=== PATIENT | female | born 1930 | race Caucasian/White ===

== ENCOUNTER 2017-09-18 09:11 | Inpatient (IN) ==
--- NOTE | 2017-09-18 09:47 | Emergency Department Note ---
ED Disposition Clinical Impression: HCAP (healthcare-associated pneumonia) Respiratory failure with hypoxia and hypercapnia Qualifiers: Chronicity: acute Qualified Code(s): J96.01 - Acute respiratory failure with hypoxia Disposition: Still a Patient Condition on Discharge: Critical - Critical Care Critical Care Time: Yes Attestation: On 09/18/17, the high probability of a clinically significant, sudden or life threatening deterioration of the following system(s) required my full and direct attention, intervention and personal management. The time I documented below is in addition to time spent performing reported procedures but includes the following listed in this critical care notation. Total Critical Care Time: 45 Vital system(s) involved:: Respiratory Failure My critical care processes included: Assessment & monitoring of V/S, Initial and Re-exams, Data Review/Interpretation, Coordinating Care, Medication Orders and management, Documentation Medical Decision Making - Rip Inquiry Pt receiving controlled substance: No Vital Signs: 09/18/17 09:12 09/18/17 09:45 09/18/17 11:00 Temperature 99 F Temperature Source Temporal Artery Scan Pulse Rate 77 Pulse Rate [Left Radial] 66 70 Respiratory Rate 28 H Blood Pressure [Right Arm] 135/68 125/82 Blood Pressure Mean [Right Arm] 90 96 Blood Pressure Source [Right Arm] Automatic Cuff Blood Pressure Position [Right Arm] Sitting 02 Sat by Pulse Oximetry 95 87 L Oxygen Delivery Method Nasal Cannula Nasal Cannula Oxygen Flow Rate (LPM) 3 09/18/17 12:11 Temperature Temperature Source Pulse Rate Pulse Rate [Left Radial] 80 Respiratory Rate Blood Pressure [Right Arm] 153/70 Blood Pressure Mean [Right Arm] 97 Blood Pressure Source [Right Arm] Blood Pressure Position [Right Arm] 02 Sat by Pulse Oximetry 84 L Oxygen Delivery Method Oxygen Flow Rate (LPM) - Lab Data Lab Results 09/18/17 10:00: WBC 14.7 H, RBC 3.91 L, Hgb 12.5, Hct 39.8, MCV 101.8 H, MCH 31.8 H, MCHC 31.3 L, RDW 13.2, Plt Count 177, MPV 10.3, Neut % (Auto) 86.7 H, Lymph % (Auto) 4.1 L, [place] % (Auto) 8.9, Eos % (Auto) 0.1, Baso % (Auto) 0.2, Neut # (Auto) 12.7 H, Lymph # (Auto) 0.6 L, [place] # (Auto) 1.3 H, Eos # (Auto) 0.0, Baso # (Auto) 0.0, Total Counted 100, Neutrophils % (Manual) 90 H, Lymphocytes % (Manual) 4 L, Atypical Lymphs % 1.0, Monocytes % (Manual) 5, Platelet Estimate Normal 09/18/17 10:00: Sodium 138, Potassium 4.8, Chloride 101, Carbon Dioxide 37 H, Anion Gap 4.8 L, BUN 24 H, Creatinine 1.11 H, Estimated Creat Clear 33, Estimated GFR 46 L, Est GFR ( Amer) 56 L, Glucose 166 H, Calcium 8.7, Total Bilirubin 0.3, AST 23, ALT 23, Alkaline Phosphatase 82, Total Protein 7.4 , Albumin 3.2 L, Globulin 4.2 H, Albumin/Globulin Ratio 0.8 L 09/18/17 10:00: Lactic Acid 1.0 09/18/17 11:31: Specimen Source r radial, O2 % 3, ABG pH 7.26 L, ABG pCO2 68.9 H , ABG pO2 36.8 L, ABG HCO3 30.2 H, ABG Total CO2 32.3 H, ABG O2 Saturation 69 L* , ABG Base Excess 3.1 H, Raudel Test acceptable Result diagrams: 09/18/17 10:00 09/18/17 10:00 Orders (Tests/Meds): ED MEDICATIONS Generic Name Dose Route Start Last Admin Trade Name Freq PRN Reason Stop Dose Admin Levofloxacin/Dextrose 750 mg in 150 mls @ 100 mls/hr 09/18/17 12:00 Levofloxacin 750mg/150ml Premix IV 10/02/17 11:59 Q24H [facility] Protocol Cefepime HCl 2 gm/ Sodium 100 mls @ 200 mls/hr 09/18/17 12:00 09/18/17 12:04 Chloride IV 10/02/17 11:59 200 mls/hr Q8H [facility] Administration Protocol Miscellaneous 1 each 09/18/17 12:00 Vancomycin Consult Request * 10/18/17 11:59 CONSULT [facility]ARMACY [facility] Discontinued Medications Generic Name Dose Route Start Last Admin Trade Name Freq PRN Reason Stop Dose Admin Albuterol/Ipratropium 3 ml 09/18/17 10:06 09/18/17 10:07 Duoneb 3ml Neb 09/18/17 10:07 3 ml ONCE ONE Administration Methylprednisolone Sodium Succinate 125 mg 09/18/17 11:52 09/18/17 12:04 Solu-Medrol 125mg/2ml Vial IV 09/18/17 11:53 125 mg ONCE ONE Administration Sodium Chloride 3 ml 09/18/17 09:49 Sodium Choride 3ml Neb Soln 09/18/17 09:50 ONCE ONE ORDERS Category Date Time Status Upper Respiratory Panel, PCR Stat Lab 09/18/17 12:09 Received Blood Culture Stat Micro 09/18/17 10:15 Received Sputum Culture & Gram Stain Stat Micro 09/18/17 09:45 Results - Radiology Data #1 Image(s): Chest Image Reviewed: Yes I discussed the image results w/the radiologist Prominent right hilum, chronic. Rotation. Left lower lobe pneumonia. Medical Decision Narrative: The patient had declining oxygen saturation the emergency department. Placed on nonrebreather mask for a pulse oximetry in the 60s. Pulse oximetry came up to 90. Arterial blood gases also show hypercapnia. Started on BiPAP. I have discussed the case with Dr. Navarro for Dr. Beltran who agrees to admit the patient to the hospital. We discussed the patient's clinical information, including history, exam, laboratory and radiology results and ED course. Per hospital procedure, I will write temporary bridge inpatient orders on the patient. Specific orders requested by the admitting physician: Continue BiPAP, antibiotics, nebulizer treatments, steroids General Adult HPI - General Chief complaint: Shortness of Breath/Dyspnea Stated complaint: altered mental status Time Seen by Provider: 09/18/17 09:47 Mode of Arrival: EMS Limitations: Altered Mental Status Description of Symptoms (Recalled from ER Triage Doc. by RN): AMS. Increased pulmonary congestion over night. Pt is DNR. - History of Present Illness HPI narrative: History obtained from nursing staff and from daughter. Daughter states that she got a call [facility] the [facility] last night stating that the patient had a fever. They said that yesterday she was up walking around and seemed fine and then last night developed a fever, has been sleeping since then, and today has respiratory difficulty. Daughter states she has a history of pneumonia when she was younger. Scarring in her lungs. Says she carries a diagnosis of COPD on her chart, but daughter was unaware that she had been diagnosed with that. No history of heart was. She does have severe dementia and is DNR. - Related Data Allergies Allergy/AdvReac Type Severity Reaction Status Date / Time INGREDIENT: NO KNOWN - NO Allergy Unknown Uncoded 05/21/17 15:34 KNOWN DRUG ALLERGY No Known Drug Allergies - Allergy Unknown NA Uncoded 05/21/17 15:34 Nkda [facility] History I have reviewed the patient's past medical history: Yes - Social History Alcohol Intake: never - Psychiatric History Expresses thoughts of harming self/others: None Suicide Plan Description: No Plan ROS Obtained: Yes unobtainable due to mental status Physical Exam - General General appearance: other Comment: Lays with eyes closed. Opens eyes and looks at me when I speak to her, but does not answer questions or follow commands. Tachypneic. Audible respiratory congestion. - Head Head exam: atraumatic, normocephalic, normal inspection - Eye Eye exam: Present: normal appearance, PERRL, EOMI - ENT ENT exam: Present: normal exam - Neck Neck exam: Present: normal inspection, full ROM, trachea midline. Absent: meningismus, lymphadenopathy - Chest Chest inspection: Present: normal inspection, symmetric chest wall rise. Absent : tenderness - Respiratory Respiratory exam: Present: respiratory distress, other (Tachypnea, audible rhonchi) - Cardiovascular Cardiovascular exam: Present: regular rate, normal rhythm. Absent: JVD - Abdominal Exam Abdominal exam: Present: soft, normal bowel sounds. Absent: distention, tenderness, guarding - Extremities Exam Extremities exam: Present: normal inspection, normal capillary refill - Neurological Exam Neurological exam: Present: other (Opens eyes to stimulation) - Skin Skin exam: Present: warm, dry, intact, normal color
[2017-09-18 10:16] LABS: Basophils % 0.2 % (0.1-2.0); Eosinophils % 0.1 % (0.1-12.0); Hematocrit 39.8 % (37.0-47.0); Hemoglobin 12.5 g/dL (12.2-16.2); Lymphocytes # 0.6 K/mm3 (0.7-4.5); Lymphocytes % 4.1 K/mm3 (10-50); Mean Corpuscular HGB Conc 31.3 g/dL (31.8-35.4); Mean Corpuscular Hemoglobin 31.8 pg (27.0-31.2); Mean Corpuscular Volume 101.8 fl (81-99); Mean Platelet Volume 10.3 fl (7.4-10.4); Monocytes # 1.3 K/mm3 (0.1-1.0); Monocytes % 8.9 % (1.7-9.3); Neutrophils # 12.7 K/mm3 (1.8-7.8); Neutrophils % 86.7 % (37.0-80.0); Platelet Count 177 K/mm3 (142-424); Red Blood Count 3.91 M/mm3 (4.20-5.40); Red Cell Distribution Width 13.2 % (11.5-17.5); White Blood Count 14.7 K/mm3 (4.8-10.8)
[2017-09-18 10:30] LABS: Albumin Level 3.2 gm/dL (3.4-5.0); Albumin/Globulin Ratio 0.8 (1.1-1.8); Anion Gap 4.8 mEq/L (5-15); Bilirubin,Total 0.3 mg/dL (0.2-1.0); Calcium 8.7 mg/dL (8.5-10.1); Globulin 4.2 gm/dl (1.3-3.2); Potassium 4.8 mmoL/L (3.5-5.1); Total Protein,Serum 7.4 gm/dL (6.4-8.2)
[2017-09-18 10:53] LABS: Lymphocytes % 4 % (10-50); Monocytes % 5 % (2-9); Neutrophils % 90 % (42-76); Total Cells Counted 100
[2017-09-18 11:42] LABS: ABG Base Excess 3.1 mmol/L (-2.4-2.3); ABG HCO3 30.2 mmhg (22.0-26.0); ABG Oxygen Saturation 69 % (90-100); ABG PH 7.26 mmol/L (7.35-7.45); ABG TCO2 32.3 mmhg (23-27)
[2017-09-18 11:44] LABS: Allen's Test acceptable; Oxygen 3 %
[2017-09-18 11:45] LABS: ABG PCO2 68.9 mmhg (35.0-45.0); ABG PO2 36.8 mmhg (80-100)
[2017-09-18 12:14] LABS: Coronavirus 229E Not Detected (NotDetected); Coronavirus NL63 Not Detected (NotDetected); Coronavirus OC43 Not Detected (NotDetected); Coronovirus HKU1,PCR Not Detected (NotDetected)
[2017-09-18 16:25] LABS: ABG Base Excess 4.5 mmol/L (-2.4-2.3); ABG HCO3 31.8 mmhg (22.0-26.0); ABG Oxygen Saturation 99 % (90-100); ABG PH 7.24 mmol/L (7.35-7.45); ABG PO2 308.3 mmhg (80-100); ABG TCO2 34.1 mmhg (23-27)
[2017-09-18 16:27] LABS: Oxygen 100 %
[2017-09-18 16:28] LABS: Tidal Volume 18/6
[2017-09-18 16:29] LABS: ABG PCO2 75.3 mmhg (35.0-45.0)
--- NOTE | 2017-09-18 17:30 | History & Physical Report ---
*Admission Date: 09/18/17 *Chief complaint: Mental status change/lethargy *History of present illness: 87-year-old white female, resident of local longterm who was brought to the emergency department with hypoxia, significant mental status change and sluggishness. Found to have evidence of healthcare acquired pneumonia with lung infiltrate on chest x-ray, significant hypoxia, hypercapnia and evidence of respiratory failure. Admitted to hospital for BiPAP therapy, enhanced antibiotics and supportive care. Of note she maintains a DNR status which I confirmed with all 3 of her children who are in attendance today at the hospital. [facility] History I have reviewed the patient's past medical history: Yes Medical History: Reports:: Diabetes Mellitus Type 2, Hypertension Other Surgeries: Yes: Hysterectomy-Total - *Social History Educational Level: Completed Grade School Smoking Status: Never smoker Alcohol Intake: never Occupational Status: retired Housing: longterm - Psychiatric History Expresses thoughts of harming self/others: None Suicide Plan Description: No Plan *Family Hx:: Tuberculosis Review of Systems - Review of Systems Review of systems:: unable to obtain Meds Allergies Allergy/AdvReac Type Severity Reaction Status Date / Time No Known Drug Allergies - Allergy Unknown NA Uncoded 09/18/17 13:28 Nkda Exam Vital signs and Labs for Last 24 Hours: Temp Pulse Resp BP Pulse Ox 99 F 80 24 153/70 84 L 09/18/17 13:29 09/18/17 13:29 09/18/17 13:29 09/18/17 13:29 09/18/17 12:11 Laboratory Results - last 24 hr 09/18/17 16:23: Specimen Source R brachial, O2 % 100, ABG pH 7.24 L*, ABG pCO2 75.3 H, ABG pO2 308.3 H, ABG HCO3 31.8 H, ABG Total CO2 34.1 H, ABG O2 Saturation 99, ABG Base Excess 4.5 H, Raudel Test N/a, Vent Rate 20, Tidal Volume 18/6 I & O for Last 24 hours: Intake & Output 09/16/17 09/17/17 09/18/17 09/19/17 11:59 11:59 11:59 11:59 Weight 107 lb 9 oz Narrative: Obtunded white female who appears her stated age, appears cachectic. On BiPAP. Lungs have rhonchi and BiPAP noises throughout, heart rate regular. Soft flow murmur. Abdomen is minimally tender to palpation with some grimacing and withdrawal behaviors on palpation. She has poor perfusion of her extremities, she has cool distal extremities with poor capillary refill. Assessment and Plan (1) HCAP (healthcare-associated pneumonia) Current visit: Yes Status: Acute Category: Medical Code(s): J18.9 - Pneumonia, unspecified organism (2) Respiratory failure with hypoxia and hypercapnia Current visit: Yes Status: Acute Qualifiers: Chronicity: acute Qualified Code(s): J96.01 - Acute respiratory failure with hypoxia; J96.02 - Acute respiratory failure with hypercapnia Category: Medical Code(s): J96.91 - Respiratory failure, unspecified with hypoxia; J96.92 - Respiratory failure, unspecified with hypercapnia Agree with admission and BiPAP therapy. I have reviewed her second ABG which shows no significant improvement. Patient is a high likelihood of organ dysfunction and significant mortality risk. Her family is aware of this, we have reiterated their desire for no aggressive resuscitative measures in the likelihood of cardiopulmonary arrest. Continue broad-spectrum antibiotics, supportive care and pulmonary toilet.
--- NOTE | 2017-09-19 07:39 | Pharmacy Consult Notes ---
[facility] Pharmacy VTE Monitoring - Patient Demographics Admission date: 09/18/17 Report Date: 09/19/17 Time: 07:39 Allergies/Adverse Reactions: Patient Allergies No Known Drug Allergies - Nkda Allergy (Unknown, Uncoded 09/18/17 13:28) NA Height: 1.55 m Weight: 48.79 kg Patient Problems: Current Active Problems HCAP (healthcare-associated pneumonia) (Acute) Respiratory failure with hypoxia and hypercapnia (Acute) - VTE Risk Labs: VTE Related Lab Results Hgb 12.5 g/dL (12.2-16.2) 09/18/17 10:00 Hct 39.8 % (37.0-47.0) 09/18/17 10:00 Plt Count 177 K/mm3 (142-424) 09/18/17 10:00 BUN 24 mg/dL (7-18) H 09/18/17 10:00 Creatinine 1.11 mg/dL (0.55-1.02) H 09/18/17 10:00 Estimated Creat Clear 33 mL/min (0-300) 09/18/17 10:00 Was VTE Risk Assessment Performed: Yes VTE Score: 3 VTE Risk Level: Low Risk - Prophylaxis VTE Prophylaxis Ordered?: Yes Types of VTE Prophylaxis: TEDS Knee High Location of Applied Device: Bilateral Lower Extremeties - VTE Diagnosis Confirmed Treatment or plan recommended: Continue Current Treatment
--- NOTE | 2017-09-19 07:53 | Progress Note ---
Internal Medicine - PN: Subj *Date: 09/19/17 *Time: 07:52 Interval history: Overnight patient has not made much improvement. Renal function is poor with varied negligible urine output. Labs do not look much better this morning. She responded fairly well to some Ativan last night but remained essentially obtunded. Exam Vital signs and Labs for Last 24 Hours: Temp Pulse Resp BP Pulse Ox 97.3 F L 77 20 166/64 97 09/19/17 07:36 09/19/17 07:36 09/19/17 07:36 09/19/17 07:36 09/19/17 07:36 Laboratory Results - last 24 hr 09/18/17 16:23: Specimen Source R brachial, O2 % 100, ABG pH 7.24 L*, ABG pCO2 75.3 H, ABG pO2 308.3 H, ABG HCO3 31.8 H, ABG Total CO2 34.1 H, ABG O2 Saturation 99, ABG Base Excess 4.5 H, Raudel Test N/a, Vent Rate 20, Tidal Volume 18/6 I & O for Last 24 hours: Intake & Output 09/16/17 09/17/17 09/18/17 09/19/17 11:59 11:59 11:59 11:59 Intake Total 1337 / 1337 Balance 1337 / 1337 Weight 107 lb 9 oz Narrative: Poor response to verbal and tactile stimuli. Lungs with rhonchi, poor perfusion , abdomen is softer. No extremity edema. Assessment and Plan (1) HCAP (healthcare-associated pneumonia) Current visit: Yes Status: Acute Category: Medical Code(s): J18.9 - Pneumonia, unspecified organism (2) Respiratory failure with hypoxia and hypercapnia Current visit: Yes Status: Acute Qualifiers: Chronicity: acute Qualified Code(s): J96.01 - Acute respiratory failure with hypoxia; J96.02 - Acute respiratory failure with hypercapnia Category: Medical Code(s): J96.91 - Respiratory failure, unspecified with hypoxia; J96.92 - Respiratory failure, unspecified with hypercapnia - Assessment and plan all Dx Assessment and Plan for all problems:: Poor response to antibiotics. Significant evidence of organ dysfunction. Palliative care, I anticipate a terminal outcome. Family aware.
--- NOTE | 2017-09-19 10:39 | Pharmacy Consult Notes ---
- Pharmacy Consult Date: 09/19/17 Time: 10:38 Referring provider: DR. RIVERO Reason for Consult:: VANCOMYCIN DOSING Allergies and ADEs:: Allergies Allergy/AdvReac Type Severity Reaction Status Date / Time No Known Drug Allergies - Allergy Unknown NA Uncoded 09/18/17 13:28 Nkda Home Medications:: Home Medications Medication Instructions Recorded Confirmed Type Glimepiride [Amaryl 2mg tablet] 2 mg PO DAILY 09/18/17 09/18/17 History Quetiapine Fumarate [Quetiapine 200 mg PO HS 09/18/17 09/19/17 History Fumarate] risperiDONE [Risperdal 1mg Tablet] 1 mg PO HS 09/18/17 09/18/17 History Height: 1.55 m Weight: 48.79 kg Laboratory Results:: Laboratory Results - last 24 hr 09/18/17 16:23: Specimen Source R brachial, O2 % 100, ABG pH 7.24 L*, ABG pCO2 75.3 H, ABG pO2 308.3 H, ABG HCO3 31.8 H, ABG Total CO2 34.1 H, ABG O2 Saturation 99, ABG Base Excess 4.5 H, Raudel Test N/a, Vent Rate 20, Tidal Volume 18/6 Medical History: Reports:: Diabetes Mellitus Type 2, Hypertension Assessment and Plan (1) HCAP (healthcare-associated pneumonia) Current visit: Yes Status: Acute Category: Medical Code(s): J18.9 - Pneumonia, unspecified organism (2) Respiratory failure with hypoxia and hypercapnia Current visit: Yes Status: Acute Qualifiers: Chronicity: acute Qualified Code(s): J96.01 - Acute respiratory failure with hypoxia; J96.02 - Acute respiratory failure with hypercapnia Category: Medical Code(s): J96.91 - Respiratory failure, unspecified with hypoxia; J96.92 - Respiratory failure, unspecified with hypercapnia - Assessment and plan all Dx Assessment and Plan for all problems:: BASED ON PATIENT FACTORS, RECOMMEND VANCOMYCIN 1 GM IV Q24H. WILL OBTAIN VANCOMYCIN TROUGH LEVEL PRIOR TO DOSE ON 09/20/17. PHARMACY WILL FOLLOW DAILY AND ADJUST APPROPRIATE.
--- NOTE | 2017-09-20 08:17 | Progress Note ---
Internal Medicine - PN: Subj *Date: 09/20/17 *Time: 08:15 Interval history: Patient remains obtunded, received Ativan a few minutes ago for agitation. She has had no meaningful communication per the nursing staff. Remains afflicted with very minimal urine output. Exam Vital signs and Labs for Last 24 Hours: Temp Pulse Resp BP Pulse Ox 97.1 F L 68 18 157/56 100 09/20/17 04:00 09/20/17 06:15 09/20/17 04:00 09/20/17 04:00 09/20/17 06:15 I & O for Last 24 hours: Intake & Output 09/17/17 09/18/17 09/19/17 09/20/17 11:59 11:59 11:59 11:59 Intake Total 1337 / 1337 1007 / 1007 Balance 1337 / 1337 1007 / 1007 Weight 107 lb 9 oz Narrative: Patient is obtunded, breathing with the aid of the BiPAP machine. Saturations 95% on BiPAP settings. Lungs have rhonchi bilaterally, heart rate regular. Abdomen is soft, perfusion is reasonable with slightly diminished cap refill 4 seconds but warm extremities. Assessment and Plan (1) HCAP (healthcare-associated pneumonia) Current visit: Yes Status: Acute Category: Medical Code(s): J18.9 - Pneumonia, unspecified organism (2) Respiratory failure with hypoxia and hypercapnia Current visit: Yes Status: Acute Qualifiers: Chronicity: acute Qualified Code(s): J96.01 - Acute respiratory failure with hypoxia; J96.02 - Acute respiratory failure with hypercapnia Category: Medical Code(s): J96.91 - Respiratory failure, unspecified with hypoxia; J96.92 - Respiratory failure, unspecified with hypercapnia (3) Citrobacter infection Current visit: Yes Status: Acute Category: Medical Code(s): A49.8 - Other bacterial infections of unspecified site - Assessment and plan all Dx Assessment and Plan for all problems:: Respiratory failure continues. Continue BiPAP -- ABG today to evaluate hypercapnia control. Overall prognosis is poor based on overlying age, underlying illnesses. Citrobacter infection noted, sensitive to antibiotics. Urine catheter to evaluate urine output. Labs tomorrow.
[2017-09-20 08:59] LABS: ABG HCO3 24.7 mmhg (22.0-26.0); ABG Oxygen Saturation 94 % (90-100); ABG PH 7.28 mmol/L (7.35-7.45); ABG PO2 72.8 mmhg (80-100); ABG TCO2 26.3 mmhg (23-27); Oxygen 55 %
[2017-09-20 09:00] LABS: Allen's Test Patient Unable; Tidal Volume BIPAP 18/6
[2017-09-20 09:01] LABS: ABG PCO2 53.3 mmhg (35.0-45.0)
[2017-09-20 12:21] LABS: Microscopic, Urine URINE MICROSCOPIC (MICROSCOPIC)
[2017-09-20 12:24] LABS: Appearance,Urine CLEAR (Clear); Bilirubin,Urine Negative (Negative); Blood, Urine TRACE-I (Negative); Color,Urine YELLOW (Yellow); Glucose,Urine (UA) Negative (Negative); Ketones,Urine TRACE (Negative); Leukocyte Esterase,Urine Negative (Negative); Protein,Urine 2+ (Negative); Specific Gravity, Urine >= 1.030 (1.005-1.030); Urobilinogen,Urine 0.2 EU/dl (0.2)
[2017-09-20 12:58] LABS: Bacteria,Urine 2+ /lpf; Mucus,Urine 1+ /lpf; Squamous Epithelial Cell,Urine Occasional #/hpf (0-5)
[2017-09-21 06:18] LABS: Basophils % 0.1 % (0.1-2.0); Eosinophils % 0.2 % (0.1-12.0); Hematocrit 36.2 % (37.0-47.0); Hemoglobin 10.9 g/dL (12.2-16.2); Lymphocytes # 0.1 K/mm3 (0.7-4.5); Lymphocytes % 1.3 K/mm3 (10-50); Mean Corpuscular HGB Conc 30.2 g/dL (31.8-35.4); Mean Corpuscular Hemoglobin 31.6 pg (27.0-31.2); Mean Corpuscular Volume 104.5 fl (81-99); Mean Platelet Volume 11.5 fl (7.4-10.4); Monocytes # 0.3 K/mm3 (0.1-1.0); Monocytes % 3.6 % (1.7-9.3); Neutrophils # 8.9 K/mm3 (1.8-7.8); Neutrophils % 94.8 % (37.0-80.0); Platelet Count 120 K/mm3 (142-424); Red Blood Count 3.46 M/mm3 (4.20-5.40); Red Cell Distribution Width 13.3 % (11.5-17.5); White Blood Count 9.4 K/mm3 (4.8-10.8)
[2017-09-21 06:49] LABS: Anion Gap 12.4 mEq/L (5-15); Potassium 5.4 mmoL/L (3.5-5.1)
[2017-09-21 08:09] LABS: Lymphocytes % 4 % (10-50); Monocytes % 3 % (2-9); Neutrophils % 92 % (42-76); RBC Morphology Normal; Total Cells Counted 100
--- NOTE | 2017-09-21 08:42 | Progress Note ---
Internal Medicine - PN: Subj *Date: 09/21/17 *Time: 08:42 Interval history: Patient was transitioned from BiPAP to facemask, her daughter's report is much more comfortable, slept fairly well. Blood pressure and pulse rate variability noted through the night by nursing staff. Exam Vital signs and Labs for Last 24 Hours: Temp Pulse Resp BP Pulse Ox 98.6 F 81 40 H 111/67 94 L 09/21/17 03:58 09/21/17 03:58 09/21/17 07:03 09/21/17 03:58 09/21/17 03:58 Laboratory Results - last 24 hr 09/20/17 08:40: Specimen Source Right brachial, O2 % 55, ABG pH 7.28 L, ABG pCO2 53.3 H, ABG pO2 72.8 L, ABG HCO3 24.7, ABG Total CO2 26.3, ABG O2 Saturation 94, ABG Base Excess -2.0, Raudel Test Patient unable, Vent Rate 20, Tidal Volume Bipap 18/1109/20/17 10:05: Urine Color Yellow, Urine Appearance Clear, Urine pH 6.0, Ur Specific [place] >= 1.030, Urine Protein 2+, Urine Glucose (UA) Negative, Urine Ketones Trace, Urine Blood Trace-i, Urine Nitrate Negative, Urine Bilirubin Negative, Urine Urobilinogen 0.2, Ur Leukocyte Esterase Negative, Urine RBC 3-5 , Urine WBC 3-5, Ur Squamous Epith Cells Occasional, Urine Bacteria 2+, Hyaline Casts 10-20, Fine Granular Casts 3-5, Urine Mucus 1+ 09/20/17 16:34: Vancomycin Trough 12.0 09/21/17 05:50: WBC 9.4 D, RBC 3.46 L, Hgb 10.9 L, Hct 36.2 L, MCV 104.5 H, MCH 31.6 H, MCHC 30.2 L, RDW 13.3, Plt Count 120 L D, MPV 11.5 H, Neut % (Auto) 94.8 H, Lymph % (Auto) 1.3 L, [place] % (Auto) 3.6, Eos % (Auto) 0.2, Baso % (Auto ) 0.1, Neut # (Auto) 8.9 H, Lymph # (Auto) 0.1 L, [place] # (Auto) 0.3, Eos # (Auto ) 0.0, Baso # (Auto) 0.0, Total Counted 100, Neutrophils % (Manual) 92 H, Band Neutrophils % 1.0, Lymphocytes % (Manual) 4 L, Monocytes % (Manual) 3, Platelet Estimate Clumped, RBC Morphology Normal 09/21/17 05:50: Sodium 149 H, Potassium 5.4 H, Chloride 114 H, Carbon Dioxide 28 D, Anion Gap 12.4, BUN 42 H D, Creatinine 1.02, Estimated Creat Clear 29, Estimated GFR 51 L, Est GFR ( Amer) 62, Glucose 206 H I & O for Last 24 hours: Intake & Output 09/18/17 09/19/17 09/20/17 09/21/17 11:59 11:59 11:59 11:59 Intake Total 1487 / 1487 1007 / 1007 2162 / 2162 Output Total 500 / 500 Balance 1487 / 1487 1007 / 1007 1662 / 1662 Weight 107 lb 9 oz Narrative: Patient is obtunded. Not responsive. Breathing is. Poor distal perfusion. Assessment and Plan (1) HCAP (healthcare-associated pneumonia) Current visit: Yes Status: Acute Category: Medical Code(s): J18.9 - Pneumonia, unspecified organism (2) Respiratory failure with hypoxia and hypercapnia Current visit: Yes Status: Acute Qualifiers: Chronicity: acute Qualified Code(s): J96.01 - Acute respiratory failure with hypoxia; J96.02 - Acute respiratory failure with hypercapnia Category: Medical Code(s): J96.91 - Respiratory failure, unspecified with hypoxia; J96.92 - Respiratory failure, unspecified with hypercapnia (3) Citrobacter infection Current visit: Yes Status: Acute Category: Medical Code(s): A49.8 - Other bacterial infections of unspecified site - Assessment and plan all Dx Assessment and Plan for all problems:: Continues to decline. Anticipate terminal outcome, palliative care continues.
--- NOTE | 2017-09-21 11:36 | Pharmacy Consult Notes ---
- Pharmacy Consult Date: 09/21/17 Time: 11:35 Referring provider: DR. RIVERO Reason for Consult:: VANCOMYCIN LEVEL Allergies and ADEs:: Allergies Allergy/AdvReac Type Severity Reaction Status Date / Time No Known Drug Allergies - Allergy Unknown NA Uncoded 09/18/17 13:28 Nkda Home Medications:: Home Medications Medication Instructions Recorded Confirmed Type Glimepiride [Amaryl 2mg tablet] 2 mg PO DAILY 09/18/17 09/18/17 History Quetiapine Fumarate [Quetiapine 200 mg PO HS 09/18/17 09/19/17 History Fumarate] risperiDONE [Risperdal 1mg Tablet] 1 mg PO HS 09/18/17 09/18/17 History Height: 1.55 m Weight: 48.79 kg Laboratory Results:: Laboratory Results - last 24 hr 09/20/17 10:05: Urine Color Yellow, Urine Appearance Clear, Urine pH 6.0, Ur Specific [place] >= 1.030, Urine Protein 2+, Urine Glucose (UA) Negative, Urine Ketones Trace, Urine Blood Trace-i, Urine Nitrate Negative, Urine Bilirubin Negative, Urine Urobilinogen 0.2, Ur Leukocyte Esterase Negative, Urine RBC 3-5 , Urine WBC 3-5, Ur Squamous Epith Cells Occasional, Urine Bacteria 2+, Hyaline Casts 10-20, Fine Granular Casts 3-5, Urine Mucus 1+ 09/20/17 16:34: Vancomycin Trough 12.0 09/21/17 05:50: WBC 9.4 D, RBC 3.46 L, Hgb 10.9 L, Hct 36.2 L, MCV 104.5 H, MCH 31.6 H, MCHC 30.2 L, RDW 13.3, Plt Count 120 L D, MPV 11.5 H, Neut % (Auto) 94.8 H, Lymph % (Auto) 1.3 L, [place] % (Auto) 3.6, Eos % (Auto) 0.2, Baso % (Auto ) 0.1, Neut # (Auto) 8.9 H, Lymph # (Auto) 0.1 L, [place] # (Auto) 0.3, Eos # (Auto ) 0.0, Baso # (Auto) 0.0, Total Counted 100, Neutrophils % (Manual) 92 H, Band Neutrophils % 1.0, Lymphocytes % (Manual) 4 L, Monocytes % (Manual) 3, Platelet Estimate Clumped, RBC Morphology Normal 09/21/17 05:50: Sodium 149 H, Potassium 5.4 H, Chloride 114 H, Carbon Dioxide 28 D, Anion Gap 12.4, BUN 42 H D, Creatinine 1.02, Estimated Creat Clear 29, Estimated GFR 51 L, Est GFR ( Amer) 62, Glucose 206 H Medical History: Reports:: Diabetes Mellitus Type 2, Hypertension Assessment and Plan (1) HCAP (healthcare-associated pneumonia) Current visit: Yes Status: Acute Category: Medical Code(s): J18.9 - Pneumonia, unspecified organism (2) Respiratory failure with hypoxia and hypercapnia Current visit: Yes Status: Acute Qualifiers: Chronicity: acute Qualified Code(s): J96.01 - Acute respiratory failure with hypoxia; J96.02 - Acute respiratory failure with hypercapnia Category: Medical Code(s): J96.91 - Respiratory failure, unspecified with hypoxia; J96.92 - Respiratory failure, unspecified with hypercapnia (3) Citrobacter infection Current visit: Yes Status: Acute Category: Medical Code(s): A49.8 - Other bacterial infections of unspecified site - Assessment and plan all Dx Assessment and Plan for all problems:: BASED ON VANCOMYCIN TROUGH LEVEL YESTERDAY, RECOMMEND CONTINUING VANCOMYCIN 1 GM IV Q24H. PATIENT'S ANTIBIOTICS HAVE BEEN CHANGED TO LEVAQUIN ONLY.
--- NOTE | 2017-09-21 12:05 | Progress Note ---
Internal Medicine - PN: Subj *Date: 09/21/17 *Time: 12:05 Exam Vital signs and Labs for Last 24 Hours: Temp Pulse Resp BP Pulse Ox 98.6 F 81 28 H 135/66 89 L 09/21/17 08:00 09/21/17 08:00 09/21/17 08:00 09/21/17 08:00 09/21/17 08:00 Laboratory Results - last 24 hr 09/20/17 10:05: Urine Color Yellow, Urine Appearance Clear, Urine pH 6.0, Ur Specific Hasty >= 1.030, Urine Protein 2+, Urine Glucose (UA) Negative, Urine Ketones Trace, Urine Blood Trace-i, Urine Nitrate Negative, Urine Bilirubin Negative, Urine Urobilinogen 0.2, Ur Leukocyte Esterase Negative, Urine RBC 3-5 , Urine WBC 3-5, Ur Squamous Epith Cells Occasional, Urine Bacteria 2+, Hyaline Casts 10-20, Fine Granular Casts 3-5, Urine Mucus 1+ 09/20/17 16:34: Vancomycin Trough 12.0 09/21/17 05:50: WBC 9.4 D, RBC 3.46 L, Hgb 10.9 L, Hct 36.2 L, MCV 104.5 H, MCH 31.6 H, MCHC 30.2 L, RDW 13.3, Plt Count 120 L D, MPV 11.5 H, Neut % (Auto) 94.8 H, Lymph % (Auto) 1.3 L, Ballard % (Auto) 3.6, Eos % (Auto) 0.2, Baso % (Auto ) 0.1, Neut # (Auto) 8.9 H, Lymph # (Auto) 0.1 L, Ballard # (Auto) 0.3, Eos # (Auto ) 0.0, Baso # (Auto) 0.0, Total Counted 100, Neutrophils % (Manual) 92 H, Band Neutrophils % 1.0, Lymphocytes % (Manual) 4 L, Monocytes % (Manual) 3, Platelet Estimate Clumped, RBC Morphology Normal 09/21/17 05:50: Sodium 149 H, Potassium 5.4 H, Chloride 114 H, Carbon Dioxide 28 D, Anion Gap 12.4, BUN 42 H D, Creatinine 1.02, Estimated Creat Clear 29, Estimated GFR 51 L, Est GFR ( Amer) 62, Glucose 206 H I & O for Last 24 hours: Intake & Output 09/18/17 09/19/17 09/20/17 09/21/17 23:59 23:59 23:59 23:59 Intake Total 150 / 150 1337 / 1337 1007 / 1007 2162 / 2162 Output Total 200 / 200 300 / 300 Balance 150 / 150 1337 / 1337 807 / 807 1862 / 1862 Weight 48.79 kg 48.79 kg 48.79 kg Assessment and Plan (1) HCAP (healthcare-associated pneumonia) Current visit: Yes Status: Acute Category: Medical Code(s): J18.9 - Pneumonia, unspecified organism (2) Respiratory failure with hypoxia and hypercapnia Current visit: Yes Status: Acute Qualifiers: Chronicity: acute Qualified Code(s): J96.01 - Acute respiratory failure with hypoxia; J96.02 - Acute respiratory failure with hypercapnia Category: Medical Code(s): J96.91 - Respiratory failure, unspecified with hypoxia; J96.92 - Respiratory failure, unspecified with hypercapnia (3) Citrobacter infection Current visit: Yes Status: Acute Category: Medical Code(s): A49.8 - Other bacterial infections of unspecified site The patient's infection will respond to the chosen ABx?: Yes Is the patient receiving the right drug, dose, and route?: Yes Could a more targeted ABx be ordered?: No
--- NOTE | 2017-09-22 08:47 | Progress Note ---
Internal Medicine - PN: Subj *Date: 09/22/17 *Time: 08:46 Interval history: Patient has continued to decline. Worsening vital signs. Unresponsive. Exam Vital signs and Labs for Last 24 Hours: Temp Pulse Resp BP Pulse Ox 99.3 F 86 22 109/64 96 09/22/17 07:31 09/22/17 07:31 09/22/17 07:31 09/22/17 07:31 09/22/17 07:31 I & O for Last 24 hours: Intake & Output 09/19/17 09/20/17 09/21/17 09/22/17 11:59 11:59 11:59 11:59 Intake Total 1487 / 1487 1007 / 1007 2162 / 2162 611 / 611 Output Total 500 / 500 450 / 450 Balance 1487 / 1487 1007 / 1007 1662 / 1662 161 / 161 Weight 107 lb 9 oz 107 lb 9 oz Microbiology Reports for the Last 24 Hours: Microbiology 09/20/17 10:05 Urine,Catheterized Urine Culture - Preliminary NO GROWTH AFTER 24 HOURS Narrative: Obtunded, no response to stimuli. Lungs with rhonchi, diminished respiratory effort. Poor capillary refill Assessment and Plan (1) HCAP (healthcare-associated pneumonia) Current visit: Yes Status: Acute Category: Medical Code(s): J18.9 - Pneumonia, unspecified organism (2) Respiratory failure with hypoxia and hypercapnia Current visit: Yes Status: Acute Qualifiers: Chronicity: acute Qualified Code(s): J96.01 - Acute respiratory failure with hypoxia; J96.02 - Acute respiratory failure with hypercapnia Category: Medical Code(s): J96.91 - Respiratory failure, unspecified with hypoxia; J96.92 - Respiratory failure, unspecified with hypercapnia (3) Citrobacter infection Current visit: Yes Status: Acute Category: Medical Code(s): A49.8 - Other bacterial infections of unspecified site - Assessment and plan all Dx Assessment and Plan for all problems:: Continuing palliative care.
--- NOTE | 2017-09-23 08:42 | Progress Note ---
Internal Medicine - PN: Subj *Date: 09/23/17 *Time: 08:41 Interval history: Patient remains obtunded, minimal urine output Exam Vital signs and Labs for Last 24 Hours: Temp Pulse Resp BP Pulse Ox 99.5 F 141 H 22 90/50 96 09/23/17 08:00 09/23/17 08:00 09/23/17 08:00 09/23/17 08:00 09/23/17 08:00 I & O for Last 24 hours: Intake & Output 09/20/17 09/21/17 09/22/17 09/23/17 11:59 11:59 11:59 11:59 Intake Total 1007 / 1007 2312 / 2312 611 / 611 717 / 717 Output Total 500 / 500 450 / 450 225 / 225 Balance 1007 / 1007 1812 / 1812 161 / 161 492 / 492 Weight 107 lb 9 oz Microbiology Reports for the Last 24 Hours: Microbiology 09/20/17 10:05 Urine,Catheterized Urine Culture - Final NO GROWTH AFTER 48 HOURS 09/18/17 10:15 Blood Blood Culture - Preliminary NO GROWTH AFTER 4 DAYS 09/18/17 10:00 Blood Blood Culture - Preliminary NO GROWTH AFTER 4 DAYS Narrative: Heart rate regular, agonal breathing, obtunded and mottled Assessment and Plan (1) HCAP (healthcare-associated pneumonia) Current visit: Yes Status: Acute Category: Medical Code(s): J18.9 - Pneumonia, unspecified organism (2) Respiratory failure with hypoxia and hypercapnia Current visit: Yes Status: Acute Qualifiers: Chronicity: acute Qualified Code(s): J96.01 - Acute respiratory failure with hypoxia; J96.02 - Acute respiratory failure with hypercapnia Category: Medical Code(s): J96.91 - Respiratory failure, unspecified with hypoxia; J96.92 - Respiratory failure, unspecified with hypercapnia (3) Citrobacter infection Current visit: Yes Status: Acute Category: Medical Code(s): A49.8 - Other bacterial infections of unspecified site - Assessment and plan all Dx Assessment and Plan for all problems:: Continue palliative care, anticipate terminal outcome.
--- NOTE | 2017-09-24 02:42 | Death Note ---
Pronouncement Note - Date and Time of Date of : 09/24/17 Time of : 02:30 - PCOD Preliminary cause of : Pneumonia - Additional Data Confirmation of : no pulse, no respirations, no heart sounds, pupils fixed and dilated Family: at bedside Attending/PCP notified?: Yes Attending physician: Kareem Rodrigues MD Was code activated?: No Autopsy requested?: No senior examiner notified?: No Organ bank notified?: Yes Advance directives: Yes
--- NOTE | 2017-09-27 08:38 | Death Note ---
Discharge Sum: Prov - Provider Primary care physician: Kareem Rodrigues MD Admitting clinician: Kareem Rodrigues Attending physician on admission: Kareem Rodrigues Pronouncing clinician: Nomi Bruce Discharge Sum: Diag - PCOD Cause of : Pneumonia Discharge Sum: Summary - Date and Time Date of admission: 09/18/17 12:15 Date of : 09/24/17 Time of : 02:30 - Summary Details: Patient was admitted from shelter with significant multilobar pneumonia, organ failure with renal insufficiency and BiPAP requirements. Patient has been a long-term resident of shelter, has significant functional decline and dementia and has maintained DNR status for many years. In discussion with her family the next day, it was determined that our main goal was palliative care and comfort measures. As a result after 24 hours of lack of and on BiPAP therapy this was discontinued. She was found to have a Citrobacter infection in her sputum, this was treated with appropriate antibiotic therapy but the patient failed to improve with continued respiratory failure and evidence of worsening metabolic disease. She did not arouse during her hospital stay, was noncommunicative and did not eat or drink. As a result, she continue to follow a spiraling downhill course and succumbed to the effects of her disease at the date and time noted above. In accordance with her family's wishes no aggressive resuscitative measures were undertaken. - Additional Data Confirmation of as documented by pronouncing clinician: no pulse, no respirations Family: at bedside Attending/PCP notified?: Yes Attending physician: Kareem Rodrigues MD Was code activated?: No Autopsy requested?: No qualifications examiner notified?: No Organ bank notified?: Yes Advance directives: Yes Hospice patient?: No
[2017-10-03 11:20] VITALS: BP 153/70
== END 2017-09-24 04:40 | disposition expired ==
LOC: ER 09:11 → 2ND 12:15
PROVIDERS: ADMIT Internal Medicine Adolescent Medicine; ATTEND Internal Medicine Adolescent Medicine